=== PATIENT | female | born 1970 | race Two or more races ===

== ENCOUNTER 2023-06-17 05:45 | Day surgery (SDC) | payer OTHER ==
[~2023-06-17] VITALS: Ht 167.6 cm; Wt 70.3 kg
== END 2023-06-17 13:40 | disposition home or self-care (01) ==
LOC: CIR.AMB 05:45
PROVIDERS: ATTEND Obstetrics & Gynecology
DX: N93.8 Other specified abnormal uterine and vaginal bleeding (principal); N72 Inflammatory disease of cervix uteri; N85.8 Other specified noninflammatory disorders of uterus; Z20.822 Contact with and (suspected) exposure to COVID-19; Z88.6 Allergy status to analgesic agent

== ENCOUNTER 2023-08-12 07:15 | Inpatient (IN) | payer OTHER ==
[~2023-08-12] VITALS: Ht 167.6 cm; Wt 69.4 kg
[2023-08-12 10:07] LABS: INR 0.98; PROTHROMBIN TIME 10.3 SECONDS (9.0-11.5)
[2023-08-20] MEDS ORDERED: GABAPENTIN100 M2 (15:33)
== END 2023-08-21 10:04 | disposition home or self-care (01) | DRG 743 ==
LOC: O/R 08-19 05:37 → OB/GYN 08-19 05:37 → SURG 08-19 07:00 → OB/GYN 08-19 11:06
PROVIDERS: ADMIT Obstetrics & Gynecology; ATTEND Obstetrics & Gynecology
PROC: 0UT70ZZ Resection of Bilateral Fallopian Tubes, Open Approach (ICD-10-PCS; 2023-08-19)
PROC: 0UT20ZZ Resection of Bilateral Ovaries, Open Approach (ICD-10-PCS; 2023-08-19)
PROC: 0UT90ZZ Resection of Uterus, Open Approach (ICD-10-PCS; principal; 2023-08-19 07:00)
DX: D25.2 Subserosal leiomyoma of uterus (principal); N80.201 Endometriosis of right fallopian tube, unspecified depth; Z20.822 Contact with and (suspected) exposure to COVID-19